=== PATIENT | female | born 1960 | race Caucasian/White ===

== ENCOUNTER 2017-02-12 18:05 | Emergency (ER) | payer OTHER ==
[~2017-02-12] VITALS: Ht 165.1 cm; Wt 74.0 kg
[~2017-02-12 18:05] MED LIST: METO-53 PO; OLME40TA14 PO
[2017-02-12 18:23] VITALS: Ht 165.1 cm; Wt 74.0 kg
[2017-02-12] MEDS ORDERED: NICARDipine HCL 30 MG CAPSULE PO ONE ×2 (18:30→21:00)
[2017-02-12] MEDS ORDERED: METO-407 PO (18:40)
[2017-02-12] MEDS ORDERED: OLME1TAB5 PO (18:40)
--- NOTE | 2017-02-12 20:43 | RADRPT ---
PROCEDURE: CT brain without contrast CLINICAL INDICATION: Headaches TECHNIQUE: A CT of the brain was performed utilizing axial sections from the skull base through th e vertex without contrast. Sagittal and coronal images were also reformatted. The exam CTDIvol = 44. 95 mGy and DLP = 720.23 mGy-cm. COMPARISON: None available FINDINGS: No acute intracranial hemorrhage is identified. There is no mass effect or midline shift. No extra -axial fluid collection is seen. The ventricles and sulci are within normal limits for size and con figuration. The density of the brain is within normal limits. Lewis-white differentiation is preser shirin. The osseous structures are unremarkable. The mastoid air cells and visualized paranasal sinuses are clear. RPTAT:HJJR IMPRESSION: Unremarkable noncontrast CT of the brain. Physician David Date Time Electronically viewed and signed by Physician David on 02/12/2017 20:43 /
[2017-02-12] MEDS ORDERED: TRAM50TA2 PO (20:49)
--- NOTE | 2017-02-12 20:53 | ERD ---
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 The patient states she had gradual onset of a occipital and bitemporal headache today that is familiar to her by having hypertension with the same types of headaches in the past. Will blurry vision no chest pain or shortness of breath no numbness weakness no focal neurological complaints. She said she took a clonidine 0.1 mg p.o. about 1 hour prior to arrival. She said she came in because her blood pressure is not declining after the clonidine. Said her blood pressure was 202/105. ROS All systems reviewed and are negative except as per history of present illness. Medications Home Meds Active Scripts Tramadol HCl (Tramadol HCl) 50 Mg Tablet, 50 MG PO Q6 Y for PAIN, #20 TAB Prov:CLEVELAND LIN DO 02/12/17 Reported Medications Metoprolol Tartrate* (Lopressor*) 100 Mg Tablet, 100 MG PO BID, #60 TAB 02/12/17 Olmesartan/Hydrochlorothiazide (Benicar Hct 40-25 mg Tablet) 1 Each Tablet, 1 EACH PO DAILY, TAB 02/12/17 Discontinued Reported Medications Metoprolol (Lopressor) 50 Mg Tablet, 50 MG PO BID 03/28/13 Olmesartan Medoxomil (Benicar) 40 Mg Tablet, 40 MG PO DAILY 03/28/13 Allergies Allergies: Coded Allergies: No Known Allergy (Unverified , 02/12/17) PMhx/Soc History of Surgery: Yes (10 YRS AGO COLONOSCOPY) Anesthesia Reaction: No Hx Neurological Disorder: No Hx Respiratory Disorders: No Hx Cardiac Disorders: Yes (HTN 20 YRS AGO) Hx Psychiatric Problems: No Hx Miscellaneous Medical Probl: No Hx Alcohol Use: No Hx Substance Use: No Hx Tobacco Use: No Smoking Status: Never smoker FmHx Family History: No coronary disease Physical Exam Vitals Vital Signs Date Time Temp Pulse Resp B/P Pulse Ox O2 Delivery O2 Flow Rate FiO2 02/12/17 19:41 88 18 163/97 99 02/12/17 18:23 98.3 104 14 204/103 100 Physical Exam Const: Well-developed, well-nourished Head: Atraumatic, normocephalic Eyes: Normal Conjunctiva, PERRLA, EOMI, normal sclera, no nystagmus ENT: Normal External Ears, Nose and Mouth, moist mucus membranes. Neck: Full range of motion. No meningismus, no lymphadenopathy. Resp: Clear to auscultation bilaterally, no wheezing, rhonchi, rales Cardio: Regular rate and rhythm, no murmurs, S1 S2 present Abd: Soft, non tender x 4, non distended. Normal bowel sounds, no guarding or rebound, no pulsitile abdominal masses or bruits Skin: No petechiae or rashes, no ecchymosis , no maculopapular rash Back: No midline or flank tenderness Ext: No cyanosis, or edema, FROM x 4, normal inspection, neurovascularly intact x 4 Neur: Awake and alert, STR 5/5 x 4, sensation intact x 4, no focal findings, cerebellum intact Psych: Normal Mood and Affect Results 24 hrs Current Medications Medications (Trade) Dose Ordered Sig/Diego Route PRN Reason Start Time Stop Time Status Last Admin Dose Admin Nicardipine HCl (Cardene) 30 mg ONCE ONCE PO 02/12/17 18:30 02/12/17 18:31 DC 02/12/17 18:50 Nicardipine HCl (Cardene) 30 mg ONCE ONCE PO 02/12/17 21:00 02/12/17 21:01 Procedures/MDM PROCEDURE: CT brain without contrast CLINICAL INDICATION: Headaches TECHNIQUE: A CT of the brain was performed utilizing axial sections from the skull base through the vertex without contrast. Sagittal and coronal images were also reformatted. The exam CTDIvol = 44.95 mGy and DLP = 720.23 mGy-cm. COMPARISON: None available FINDINGS: No acute intracranial hemorrhage is identified. There is no mass effect or midline shift. No extra-axial fluid collection is seen. The ventricles and sulci are within normal limits for size and configuration. The density of the brain is within normal limits. Lewis-white differentiation is preserved. The osseous structures are unremarkable. The mastoid air cells and visualized paranasal sinuses are clear. RPTAT:HJJR IMPRESSION: Unremarkable noncontrast CT of the brain. Tho Simmons Physician Date Time Electronically viewed and signed by Tho Simmons Physician on 02/12/2017 20:43 JR/ CC: CLEVELAND LIN DO Patient received Cardene 30 mg p.o. and her blood pressure is now 161/80. I will give her 1 more dose to get an even lower. Her baseline is usually in the 130s-40s systolic. No signs of stroke no endorgan damage she feels fine now Departure Diagnosis: Primary Impression: Hypertension Hypertension type: essential hypertension Qualified Code: I10 - Essential hypertension Additional Impression: Headache Headache type: other vascular headache Qualified Code: G44.1 - Other vascular headache Condition: Stable Patient Instructions: High Blood Pressure (Hypertension) CLEVELAND LIN DO Feb 12, 2017 20:53
[2017-02-12 21:25] VITALS: BP 158/64; PULSE 92; RESP 16
== END 2017-02-12 21:27 | disposition home or self-care (01) ==
LOC: E/R 18:05
DX: I10 Essential (primary) hypertension (principal); G44.1 Vascular headache, not elsewhere classified
CPT/HCPCS: 70450; Z7502; Z7610